=== PATIENT | female | born 1995 | race Caucasian/White ===

== ENCOUNTER 2019-07-24 00:34 | Emergency (ER) | payer SELFPAY ==
[~2019-07-24] VITALS: Ht 170.2 cm; Wt 86.2 kg
[2019-07-24] MEDS ORDERED: IV NS 0.9% 1,000 ML IV PRN (01:00)
--- NOTE | 2019-07-24 01:15 | NUR ---
BIBSELF WITH FRIEND. TO ER BED 12. AAOX4. NO RESP DISTRESS NOTED. AMBULATORY. C/O WEAKNESS SINCE 9:30PM. PT ALSO REPORTS THAT HE MIGHT HAVE HAD AN ALLERGIC REACTION FROM UNKNOWN ALLERGEN, PT DENIES ANY ALLERGY. PT REPORTS THAT SHE FELT HOT AND STARTED ITCHING ALL OVER HER BODY. PT REPORTS NO CONTACT OR INGESTING SOMETHING NEW FROM HER USUAL. MD WAS AT BEDSIDE FOR EVAL. ORDERS RECEIVED, NOTED AND CARRIED OUT. IV LINE OBTAINED ON THE R AC 18G. BLOOD DRAWN AND GIVEN TO ACETYLENE BURNER AT BEDSIDE. URINE COLLECTED AND SENT TO LAB.
[2019-07-24 01:27] LABS: BASOPHILS # (AUTO) 0.1 /CMM (0.0-0.2); BASOPHILS % (AUTO) 0.6 % (0.0-2.0); CALCIUM, SERUM 9.3 mg/dL (8.5-10.1); EOSINOPHILS % (AUTO) 0.8 % (0.0-6.0); HEMATOCRIT 44 % (33-45); HEMOGLOBIN 14.4 g/dL (11.5-14.8); LYMPHOCYTES # (AUTO) 1.8 /CMM (0.8-4.8); LYMPHOCYTES % (AUTO) 13.2 % (20.0-44.0); MEAN CORPUSCULAR HGB CONC 33 g/dl (31.0-36.0); MEAN CORPUSCULAR VOLUME 86 fL (82-100); MONOCYTES # (AUTO) 0.7 /CMM (0.1-1.30); MONOCYTES % (AUTO) 5.4 % (2.0-12.0); NEUTROPHILS # (AUTO) 10.9 /CMM (1.8-8.9); PLATELET COUNT (AUTO) 402 /CMM (150-450); RED BLOOD CELL COUNT(AUTO) 5.07 MIL/uL (4.0-5.2); WHITE BLOOD COUNT (AUTO) 13.7 K/uL (4.3-11.0)
[2019-07-24] MEDS ORDERED: ONDANSETRON HCL/PF 4 MG/2 ML VIAL ONE (01:28)
[2019-07-24] MEDS ORDERED: ONDANSETRON HCL/PF 4 MG/2 ML VIAL IV ONE (01:30)
[2019-07-24 01:46] VITALS: BP 128/68
--- NOTE | 2019-07-24 01:46 | NUR ---
Patient discharged to home in stable condition. Written and verbal after care instructions given. Patient verbalizes understanding of instruction and RX. IV removed. Catheter intact and site benign. Pressure and 4x4 applied to site. No bleeding noted. PT ambulatory with a steady gait.
== END 2019-07-24 01:54 | disposition home or self-care (01) ==
LOC: ER 00:38
DX: R42 Dizziness and giddiness (principal); R53.1 Weakness
CPT/HCPCS: 36415; 80048; 84703; 85025; 96360; 99283; J2405; J7030